=== PATIENT | female | born 1935 | race Caucasian/White ===

== ENCOUNTER 2017-03-14 11:18 | Day surgery (SDC) | payer OTHER, BC ==
[2017-03-14] MEDS ORDERED: DIAZEPAM 5 MG TAB PO ONE (11:22)
[2017-03-14] MEDS ORDERED: diphenhydrAMINE 25 MG CAP PO ONE (11:22)
[2017-03-14] MEDS ORDERED: BACITRACIN IRRIGATION/NS 50,000 UNITS/1,000 ML BTL IRR ONE (11:22)
[2017-03-14] MEDS ORDERED: NS 1,000 ML IV ONE (11:22)
--- NOTE | 2017-03-14 11:52 | CPEKG ---
Heart Rate: 65 RR Interval: 923 P-R Interval: 164 QRSD Interval: 76 QT Interval: 420 QTC Interval: 437 P Kingman: 64 QRS Kingman: -3 T Wave Kingman: 43 EKG Severity - NORMAL ECG - EKG Impression: SINUS RHYTHM Electronically Signed By: Maximilian Spence 14-Mar-2017 14:27:08
[2017-03-14] MEDS ORDERED: VANCOMYCIN HCL/NORMAL SALINE 250 ML IV ONE (12:00)
[2017-03-14 12:13] LABS: % IMMATURE GRANULYOCYTES 0.4 % (0.0-1.1); ABSOLUTE IMMATURE GRANULOCYTES 0.02 10^3/uL (0.00-0.10); ADD DIFF? NO; ADD MORPH? NO; ADD SCAN? NO; ATYPICAL LYMPHOCYTE FLAG 20 (0-99); FRAGMENT RBC FLAG 0 (0-99); HEMATOCRIT 35.3 % (38.0-47.0); HEMOGLOBIN 11.3 g/dL (12.6-16.3); LEFT SHIFT FLG 0 (0-99); LIPEMIA HEMOLYSIS FLAG 80 (0-99); MEAN CELL HEMOGLOBIN 31.4 pg (27.9-34.1); MEAN CELL VOLUME 98.1 fL (81.5-99.8); PLATELET CLUMPS FLAG 0 (0-99); PLATELET COUNT 178 10^3/uL (150-400); RED CELL DISTRIBUTION WIDTH 12.9 % (11.5-15.2)
[2017-03-14] MEDS ORDERED: LIDOCAINE 1% 300 MG/30 ML SDV ONE (12:20)
[2017-03-14] MEDS ORDERED: BUPIVACAINE 0.5% 30 ML SDV ONE (12:20)
[2017-03-14] MEDS ORDERED: LIDO/EPI 1% **for epidural** 30 ML SDV ONE (12:20)
[2017-03-14 12:23] LABS: INR 1.04 (0.83-1.16); PROTIME(PATIENT) 13.5 SEC (12.0-15.0)
[2017-03-14] MEDS ORDERED: MIDAZOLAM 2 MG/2 ML VIAL ONE ×2 (12:40→13:14)
[2017-03-14] MEDS ORDERED: fentaNYL 100 MCG/2 ML INJ ONE (12:41)
[2017-03-14 12:42] LABS: ANION GAP 11 mEq/L (8-16); CALCIUM 10.4 mg/dL (8.5-10.4); CARBON DIOXIDE 23 mEq/l (22-31); CHLORIDE 112 mEq/L (97-110); CREATININE 1.8 mg/dL (0.6-1.0); GLOMERULAR FILTRATION RATE 27; GLUCOSE 79 mg/dL (70-100); POTASSIUM 4.8 mEq/L (3.5-5.2); SODIUM 146 mEq/L (134-144)
--- NOTE | 2017-03-15 11:30 | EPPROC ---
Electrophysiology Procedure Note: PROCEDURE PERFORMED: 1. AV Pacemaker generator change INDICATION: Pacemaker generator at MARJORIE Bradycardia PROCEDURE NOTE: Patient presented to the cardiac catheterization laboratory in a fasting, postabsorptive state.LA administered. The left infraclavicular area was prepped and draped in the usual sterile fashion. Lidocaine plus bupivacaine was used for local anesthesia. Using a combination of blunt and sharp dissection and electrocautery, the dissection was carried down to the prepectoral fascia and the existing pacemaker pocket was opened. The pacemaker generator was disconnected from the leads and the lead thresholds and impedance were checked. The pacemaker pocket was copiously irrigated with antibiotic solution. The pocket was again inspected for any bleeding. The leads were attached to the pacemaker securely. The pacemaker was inserted into the pocket and secured in place with a nonabsorbable suture. The pacemaker pocket was closed in 3 layers with absorbable monocryl sutures. Appropriate dressing was applied. The patient left the cardiac catheterization laboratory in stable condition. Serial Numbers: 1. Device Biotronik ELuna [id number] 2. Atrial Lead St Ean 1882TC - 46 [id number] 3. Ventricular Lead Biotronik Setrox [id number] Stimulation Thresholds & Impedance Measurements: 1. Atrial Lead 6mV, 0.8@0.4ms, 390Ohms 2. Ventricular Lead 6.8mV, 1.1@0.75ms, 428Ohms Christopher Pacing Parameters 1. Pacing mode DDD 2. Lower rate 70 3. Upper tracking rate 130 4. Upper sensor rate 130
== END 2017-03-14 15:45 | disposition home or self-care (01) ==
LOC: FCATH 11:18
PROVIDERS: ATTEND Internal Medicine Cardiovascular Disease
PROC: 0JPT0PZ Removal of Cardiac Rhythm Related Device from Trunk Subcutaneous Tissue and Fascia, Open Approach (ICD-10-PCS; principal; 2017-03-14)
PROC: 0JH606Z Insertion of Pacemaker, Dual Chamber into Chest Subcutaneous Tissue and Fascia, Open Approach (ICD-10-PCS; principal; 2017-03-14)
DX: Z45.018 Encounter for adjustment and management of other part of cardiac pacemaker (principal); I49.5 Sick sinus syndrome; I10 Essential (primary) hypertension; E03.9 Hypothyroidism, unspecified; F31.9 Bipolar disorder, unspecified
CPT/HCPCS: C1785; J2250; J3010; J3370

== ENCOUNTER 2017-08-09 05:32 | Observation (INO) | payer OTHER, BC ==
--- NOTE | 2017-08-09 05:46 | EDPHY ---
H & P Stated Complaint: right leg pain HPI/ROS: HPI CHIEF COMPLAINT: Intractable right leg pain HISTORY OF PRESENT ILLNESS: This patient is a very pleasant 82-year-old female she has significant past medical history for multiple chronic medical problems including a very bad back including spinal canal stenosis disc herniation and radicular pain, she presents to the emergency room with severe right 10/10 right leg pain that is intractable. Preventing her from walking. She denies any bowel or bladder incontinence. Denies saddle anesthesia. She she decided come the emergency room tonight as she is having ongoing back pain that was not controlled by her home pain medicine. She did call Dr. Serafin Jim office and the nurse there told her to come to the emergency room for evaluation that neurosurgery will consult on her. Here in emergency room she appears uncomfortable she denies any abdominal pain or chest pain. She does report to me severe right leg pain shoots down her right leg to her calf. Does not go to her foot. Past Medical History: Sick sinus syndrome, polymyalgia rheumatica, bipolar disorder, GERD, pacemaker, SHOWER MAID SHUNT lumbar arthritis, lumbar disc herniation Past Surgical History: Pacemaker, SHOWER MAID shunt Social History: Denies drugs alcohol tobacco products. Family History: Noncontributory. ROS REVIEW OF SYSTEMS: A comprehensive 10 point review of systems is otherwise negative aside from elements mentioned in the history of present illness. Exam Constitutional elderly, nontoxic, appears uncomfortable triage nursing summary reviewed, vital signs reviewed, awake/alert. Eyes normal conjunctivae and sclera, EOMI, PERRLA. HENT normal inspection, atraumatic, moist mucus membranes, no epistaxis, neck supple/ no meningismus, no raccoon eyes. Respiratory clear to auscultation bilaterally, normal breath sounds, no respiratory distress, no wheezing. Cardiovascular rate normal, regular rhythm, no murmur, no edema, distal pulses normal. Gastrointestinal soft, non-tender, no rebound, no guarding, normal bowel sounds, no distension, no pulsatile mass. Genitourinary no CVA tenderness. Musculoskeletal no midline vertebral tenderness, full range of motion, no calf swelling, no tenderness of extremities, no meningismus, good pulses, neurovascularly intact. Right leg is neurovascular intact good pulse. Good cap refill. With range of motion of the right leg she gets worsening sciatic type sharp shooting pain. Skin pink, warm, & dry, no rash, skin atraumatic. Neurologic awake, alert and oriented x 3, AAOx3, moves all 4 extremities equally, motor intact, sensory intact, CN II-XII intact, normal cerebellar, normal vision, normal speech. Psychiatric normal mood/affect. Heme/Lymph/Immune no lymphadenopathy. Differential Diagnosis: Includes but is not limited to in a particular order nerve root compression, annular tear, spinal canal stenosis, radicular pain, sciatica Medical Decision Making: Plan for this patient IV establishment pain control IV Dilaudid for acute pain control, check basic blood work, gentle IV hydration , will consult Neurosurgery Re-evaluation: 604: Spoke with Dr. Martinez with Neurosurgery the be glad to see and consult on the if the patient gets admitted for intractable pain. I did review her outpatient CT myelogram she cannot have an MRI due to the pacemaker, she had a CT myelogram [facility] on June 05 that shows slightly worsened canal stenosis at L4-L5 due to broad-based disc disease , subluxation and abundant facet and ligamentum hypertrophy. Source: Patient - Personal History Current Tetanus/Diphtheria Vaccine: Unsure Current Tetanus Diphtheria and Acellular Pertussis (TDAP): Unsure - Medical/Surgical History Hx Asthma: No Hx Chronic Respiratory Disease: No Hx Diabetes: No Hx Cardiac Disease: Yes Hx Renal Disease: Yes Hx Cirrhosis: No Hx Alcoholism: No Hx HIV/AIDS: No Hx Splenectomy or Spleen Trauma: No Other PMH: pacemaker, kidney disease, afib - Social History Smoking Status: Never smoked Constitutional: Initial Vital Signs Temperature (C) 36.4 C 08/09/17 05:34 Heart Rate 91 08/09/17 05:34 Respiratory Rate 18 08/09/17 05:34 Blood Pressure 145/69 H 08/09/17 05:34 O2 Sat (%) 96 08/09/17 05:34 O2 Delivery Mode Room Air Allergies/Adverse Reactions: morphine [Morphine] Allergy (Intermediate, Verified 08/09/17 05:39) Unknown acetaminophen [From Tylenol] Allergy (Verified 08/09/17 05:39) clindamycin Allergy (Verified 08/09/17 05:39) Penicillins Allergy (Verified 08/09/17 05:39) Home Medications: Medication Instructions Recorded Levothyroxine [Synthroid 112 mcg 112 mcg PO DAILY06 03/14/17 (*)] Omeprazole [Prilosec 20 mg] 40 mg PO BID 03/14/17 ALPRAZolam [Xanax 0.5 MG (*)] 0.5 mg PO HS PRN 08/09/17 Cyanocobalamin [Vitamin B12 (*)] 1,000 mcg PO DAILY 08/09/17 DULoxetine [Cymbalta 30 MG (*)] 30 mg PO HS 08/09/17 Divalproex ER [Depakote ER 250 MG 250 mg PO HS 08/09/17 (*)] Donepezil HCl [Aricept 5 MG (*)] 5 mg PO HS 08/09/17 Herbals/Supplements -Info Only 1 ea PO DAILY 08/09/17 Losartan Potassium [Cozaar 50 mg 50 mg PO DAILY@12 08/09/17 (*)] Memantine HCl [Namenda 5 mg (*)] 5 mg PO HS 08/09/17 Metoprolol Tartrate [Lopressor 25 12.5 mg PO BID 08/09/17 mg (*)] Acetaminophen [Tylenol ES 500 mg 1,000 mg PO TID tab 08/10/17 (*)] traMADol [Ultram 50 mg (*)] 25 - 50 mg PO Q6HRS PRN #25 tab 08/10/17 Medical Decision Making - Data Points Medications Given: Discontinued Medications Acetaminophen (Tylenol) 1,000 mg PO TID EDIE Stop: 02/06/18 10:29 Last Admin: 08/10/17 16:31 Dose: Not Given Alprazolam (Xanax) 0.5 mg PO HS PRN PRN Reason: Sleep/Insomnia Stop: 02/05/18 12:14 Last Admin: 08/09/17 21:03 Dose: 0.5 mg Divalproex Sodium (Depakote Er) 250 mg PO HS EDIE Stop: 02/05/18 20:59 Last Admin: 08/09/17 21:00 Dose: 250 mg Donepezil HCl (Aricept) 5 mg PO HS EDIE Stop: 02/05/18 20:59 Last Admin: 08/09/17 21:02 Dose: Not Given Duloxetine HCl (Cymbalta) 30 mg PO HS EDIE Stop: 02/05/18 20:59 Last Admin: 08/09/17 21:03 Dose: 30 mg Hydromorphone HCl (Dilaudid) 1 mg IVP EDNOW ONE Stop: 08/09/17 05:57 Last Admin: 08/09/17 06:47 Dose: 1 mg Hydromorphone HCl (Dilaudid) 2 - 4 mg PO Q4HRS PRN PRN Reason: Pain, Severe Able to Take PO Stop: 08/19/17 06:39 Last Admin: 08/10/17 00:52 Dose: 2 mg Hydromorphone HCl (Dilaudid) 0.2 - 0.4 mg IVP Q4HRS PRN PRN Reason: Pain, Severe Unable to Take PO Stop: 08/19/17 06:16 Last Admin: 08/10/17 07:55 Dose: 0.4 mg Hydromorphone/Sodium Chloride (Hydromorphone) 0.2 - 0.4 mg IVP Q4HRS PRN PRN Reason: Pain, Severe Unable to Take PO Stop: 08/19/17 06:16 Last Admin: 08/09/17 17:40 Dose: 0.4 mg Hydromorphone/Sodium Chloride (Hydromorphone) 0.4 mg IVP ONCE ONE Stop: 08/09/17 18:16 Last Admin: 08/09/17 18:00 Dose: 0.4 mg Sodium Chloride (Ns) 500 mls @ 0 mls/hr IV ONCE ONE PRN Reason: Wide Open Stop: 08/09/17 05:57 Last Admin: 08/09/17 06:44 Dose: 500 mls Levothyroxine Sodium (Synthroid) 112 mcg PO DAILY06 [facility] Stop: 02/06/18 05:59 Last Admin: 08/10/17 04:23 Dose: 112 mcg Losartan Potassium (Cozaar) 50 mg PO DAILY@12 EDIE Stop: 02/06/18 11:44 Last Admin: 08/10/17 12:35 Dose: Not Given Memantine (Namenda) 5 mg PO HS [facility] Stop: 02/05/18 20:59 Last Admin: 08/09/17 21:02 Dose: 5 mg Methocarbamol (Robaxin) 750 mg PO TID PRN PRN Reason: back spasms Stop: 02/05/18 15:59 Last Admin: 08/10/17 07:49 Dose: 750 mg Metoprolol Tartrate (Lopressor) 12.5 mg PO BID [facility] Stop: 02/05/18 12:14 Last Admin: 08/10/17 07:48 Dose: 12.5 mg Pantoprazole Sodium (Protonix) 40 mg PO BID [facility] Stop: 02/05/18 20:59 Last Admin: 08/10/17 07:49 Dose: 40 mg Tramadol HCl (Ultram) 50 mg PO Q6HRS PRN PRN Reason: Pain, Moderate Able to Take PO Stop: 02/05/18 13:07 Last Admin: 08/10/17 16:26 Dose: 50 mg Vitamin B Complex (Vitamin B12) 1,000 mcg PO DAILY [facility] Stop: 02/06/18 08:59 Last Admin: 08/10/17 07:48 Dose: 1,000 mcg Departure - Departure Disposition: [facility] Inpatient Acute Clinical Impression: Back pain Qualifiers: Back pain location: low back pain Chronicity: acute Back pain laterality: unspecified Sciatica presence: with sciatica Sciatica laterality: sciatica of right side Qualified Code(s): M54.41 - Lumbago with sciatica, right side Condition: Fair
[2017-08-09] MEDS ORDERED: NS 500 ML IV ONE (05:56)
[2017-08-09] MEDS ORDERED: HYDROmorphONE/DILAUDID 1 MG/ML INJ IVP ONE (05:56)
[2017-08-09] MEDS ORDERED: ACETAMINOPHEN 325 MG TAB PO PRN (06:17)
[2017-08-09] MEDS ORDERED: oxyCODONE IR 5 MG TAB PO PRN (06:17)
[2017-08-09] MEDS ORDERED: ONDANSETRON DISINTEGRATING 4 MG TAB PO PRN (06:17)
[2017-08-09] MEDS ORDERED: ONDANSETRON 4 MG/2 ML VIAL IVP PRN (06:17)
--- NOTE | 2017-08-09 06:44 | PDGENHP ---
History and Physical - Chief Complaint Back pain - History of Present Illness 82 yo F w/ SSS s/p PPM, chronic lower back pain, hypothyroid, NPH s/p VPS, and CKD presents with acute on chronic back pain. Patient reports slowly progressive back pain for the last month. This has progressed to significantly involve her RLE. The pain is now so severe she cannot walk. She tried to make an appointment with her neurosurgeon but she was unable to get an appointment so she came to the ED for evaluation. She denies any weakness, numbness, or loss of bowel/bladder control. History Information - Allergies/Home Medication List Allergies/Adverse Reactions: morphine [Morphine] Allergy (Intermediate, Verified 08/09/17 05:39) Unknown acetaminophen [From Tylenol] Allergy (Verified 08/09/17 05:39) clindamycin Allergy (Verified 08/09/17 05:39) Penicillins Allergy (Verified 08/09/17 05:39) Home Medications: CO Q-10 PO 03/14/17 [Last Taken Unknown] Calcitriol 0.25 mcg PO MWF 03/14/17 [Last Taken Unknown] Folic Acid 03/14/17 [Last Taken Unknown] Losartan Potassium 25 mg PO HS 03/14/17 [Last Taken Unknown] Nitroglycerin 0.4 mg SL PRN 03/14/17 [Last Taken Unknown] Omeprazole 80 mg PO DAILY 03/14/17 [Last Taken Unknown] Probiotic 03/14/17 [Last Taken Unknown] Synthroid 125 mcg PO DAILY 03/14/17 [Last Taken Unknown] Vitamin D3 03/14/17 [Last Taken Unknown] Vitamin E 03/14/17 [Last Taken Unknown] Lopressor 25 mg (*) 08/09/17 [Last Taken Unknown] I have personally reviewed and updated: family history, medical history - Past Medical History Additional medical history: CKD. SSS s/p PPM. NPH s/p VPS. Chronic lower back pain - Surgical History Reports: pacemaker/AICD - Family History Positive for: cancer - Social History Smoking Status: Never smoked Review of Systems Review of Systems: ROS: 10pt was reviewed & negative except for what was stated in HPI & below Physical Exam Physical Exam: Temp Pulse Resp BP Pulse Ox 36.4 C 91 18 145/69 H 96 08/09/17 05:34 08/09/17 05:34 08/09/17 05:34 08/09/17 05:34 08/09/17 05:34 Constitutional: appears nourished, uncomfortable Eyes: PERRL, EOMI Ears, Nose, Mouth, Throat: moist mucous membranes, no oral mucosal ulcers Cardiovascular: regular rate and rhythym, systolic murmur Respiratory: no respiratory distress, clear to auscultation Gastrointestinal: normoactive bowel sounds, soft, non-tender abdomen Skin: warm, normal color Neurologic: AAOx3, CN II-XII Intact, other (Cannot cooperate w/ LE strength testing due to pain, hard of hearing) Psychiatric: interacting appropriately, not anxious Assessment & Plan Assessment: 82 yo F w/ SSS s/p PPM, chronic lower back pain, hypothyroid, NPH s/p VPS, and CKD presents with acute on chronic back pain. Plan: 1. Acute on chronic back pain - This is a chronic problem, acutely exacerbated, that stems from degenerative disease of the lumbar spine and canal stenosis. She cannot get an MRI due to permanent pacemaker. She has tried little pain medication at home as her screw machine repairer has warned against NSAIDs and she does not like to take oxycodone due to fear for dependency. Her back pain is limiting her ability to ambulate due to radiculopathy to RLE. - Dilaudid PO + IV breakthrough for pain control - Neurosurgery consulted in ED; not a surgical candidate but will evaluate for steroid injections today 2. SSS - S/p PPM, cannot undergo MRI. 3. Hx NPH - S/p VPS 4. CKD Stage III - Baseline creatinine appears to be in 1.6-1.8 range; reasonable to avoid NSAIDs. 5. Hypothyroid - On LTX. Diet - Regular Code - Full Ppx - SCDs Dispo - Admit to observation status
[2017-08-09 06:57] LABS: % IMMATURE GRANULYOCYTES 0.8 % (0.0-1.1); ABSOLUTE IMMATURE GRANULOCYTES 0.04 10^3/uL (0.00-0.10); ADD DIFF? NO; ADD MORPH? NO; ADD SCAN? NO; ATYPICAL LYMPHOCYTE FLAG 30 (0-99); FRAGMENT RBC FLAG 0 (0-99); HEMATOCRIT 34.1 % (38.0-47.0); HEMOGLOBIN 11.5 g/dL (12.6-16.3); LEFT SHIFT FLG 0 (0-99); LIPEMIA HEMOLYSIS FLAG 80 (0-99); MEAN CELL HEMOGLOBIN 32.3 pg (27.9-34.1); MEAN CELL HEMOGLOBIN CONCENTR. 33.7 g/dL (32.4-36.7); MEAN CELL VOLUME 95.8 fL (81.5-99.8); MEAN PLATELET VOLUME 9.8 fL (8.7-11.7); PLATELET CLUMPS FLAG 10 (0-99); PLATELET COUNT 160 10^3/uL (150-400); RED BLOOD CELL COUNT 3.56 10^6/uL (4.18-5.33); RED CELL DISTRIBUTION WIDTH 12.7 % (11.5-15.2)
[2017-08-09 07:05] LABS: INR 0.96 (0.83-1.16)
[2017-08-09 07:13] LABS: ANION GAP 16 mEq/L (8-16); CARBON DIOXIDE 20 mEq/l (22-31); CHLORIDE 111 mEq/L (97-110); CREATININE 1.6 mg/dL (0.6-1.0); GLOMERULAR FILTRATION RATE 31; GLUCOSE 94 mg/dL (70-100); POTASSIUM 4.1 mEq/L (3.5-5.2); SODIUM 147 mEq/L (134-144)
[2017-08-09] MEDS: HYDROmorphONE/DILAUDID 2 MG TAB PO PRN ×2 (07:24→14:26)
[2017-08-09] MEDS: HYDROmorphone HCL/NS/PF 0.4 MG/2 ML SYR IVP PRN ×2 (08:53→17:40)
[2017-08-09 09:17] LABS: COLOR YELLOW; LEUKOCYTE ESTERASE,URINE NEGATIVE (NEGATIVE); NITRITE,URINE NEGATIVE (NEGATIVE)
[2017-08-09] MEDS ORDERED: ALPRAZolam 0.5 MG TAB PO PRN (12:15)
[2017-08-09] MEDS: METOPROLOL TARTRATE 25 MG TAB PO SCH ×2 (12:50→21:00)
--- NOTE | 2017-08-09 12:51 | HOSPPROG ---
Hospitalist Progress Note Assessment/Plan: 82 yo F w/ SSS s/p PPM, chronic lower back pain, hypothyroid, NPH s/p VPS, and CKD presents with acute on chronic back pain. 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 Objective: Vital Signs Temp Pulse Resp BP Pulse Ox 37.1 C 78 14 121/59 H 90 L 08/09/17 11:47 08/09/17 11:47 08/09/17 11:47 08/09/17 11:50 08/09/17 11:47 Laboratory Results 08/09/17 06:20 08/09/17 06:20 08/08/17 08/09/17 08/10/17 05:59 05:59 05:59 Output Total 300 Balance -300 PT 13.0 SEC (12.0-15.0) 08/09/17 06:20 INR 0.96 (0.83-1.16) 08/09/17 06:20 - Physical Exam Constitutional: uncomfortable, No not in pain Eyes: PERRL Ears, Nose, Mouth, Throat: hard of hearing, other (poor vision) Respiratory: no respiratory distress Skin: warm Musculoskeletal: muscular tenderness Neurologic: AAOx3 Psychiatric: interacting appropriately ICD10 Worksheet Patient Problems: Problems Problem Status Onset Back pain Acute
[2017-08-09] MEDS: METHOCARBAMOL 750 MG TAB PO PRN (12:53)
[2017-08-09] MEDS: traMADol 50 MG TAB PO PRN (13:16)
--- NOTE | 2017-08-09 14:26 | GHP ---
[f rep st] HISTORY AND PHYSICAL DATE OF ADMISSION: 08/09/2017 CHIEF COMPLAINT: Back pain and right leg pain. HISTORY OF PRESENT ILLNESS: This is an 82-year-old female who is a patient of Dr. Jim's, who has been seen and worked up in his office for back pain as well as leg pain recently, and who has been tr eated with injections in the past, but without much relief. She comes to the emergency room with int ractable back pain and right leg pain that she states has been worse over the last few days, but has been present since the summer. She states that her pain is so severe that she is unable to walk. govind did make an appointment with Dr. Jim, but she has been unable to get in for that as soon as she wanted to have it, so she came to the emergency room due to her intractable pain. She denies any los s of bowel or bladder control, any numbness or any weakness. She does state that her right leg pain goes along down her "whole leg," but is worse going down the lateral side of her thigh and down into her foot. She has not had any recent injections, and she is not on any gabapentin. She is unable to get an MRI due to her pacemaker. She does have a recent CT myelogram that was recently reviewed by Dr. Jim as well, and which shows a worsening canal stenosis at L4-5. This is due to a broad-based disk subluxation and abundant facet ligamentum hypertrophy at this level. 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 She was seen by Dr. Martinez this morning, and we have discusse d her care, and would like to proceed with an epidural steroid injection at this time. PAST MEDICAL HISTORY: Patient has a past medical history of chronic kidney disease, shunt for normal -pressure hydrocephalus, chronic lower back pain, pacemaker. SURGICAL HISTORY: Surgical history of a pacemaker and shunt placement for normal-pressure hydrocepha matthew. FAMILY HISTORY: Significant for cancer. SOCIAL HISTORY: Patient denies any tobacco use and denies any alcohol use and denies any other illic it drug use. ALLERGIES: Patient has an allergy to morphine, acetaminophen, clindamycin, and penicillin. REVIEW OF SYSTEMS: All pertinent positive and negative review of systems are as stated in HPI. OBJECTIVE: VITAL SIGNS: Blood pressure is 121/59, heart rate 78, respiratory rate 14, O2 saturation is 90% on room air. Temperature 37.1 degrees Celsius. CONSTITUTIONAL: Patient is an elderly femal e in no acute distress. However, she is grimacing in pain and holding her leg. HEENT: Head is norm ocephalic, atraumatic. Eyes: Pupils are equal and reactive to light and accommodation. Extraocular muscles are intact. NECK: Nontender to palpation. Has full range of motion. RESPIRATORY: The pa tient has normal work of breathing. ABDOMEN: There is no guarding. NEURO: Cranial nerves 2-12 are grossly intact. Tongue protrusion is midline. Palate rises symmetrically. Accessory muscles are 5 /5, equal in strength. She is alert and oriented x3. She is conversing appropriately. Motor: Bila teral upper extremities are 5/5, equal in strength in all muscle groups, including deltoids, biceps, triceps, wrist extensors, flexors, interossei and flow match sofa cutter, and bilateral lower extremities are 5/5 and e qual in strength, although is somewhat pain limited on the right lower extremity, but her strength do es seem to be equal and somewhat effort dependent. She has 5/5 in her quadriceps, hamstrings, dorsif lexion, plantar flexion, and EHL. Her deep tendon reflexes are 2+ bilaterally in patellar and Achill es. She has negative clonus, and her toes are downgoing. EXTREMITIES: There is no cyanosis or abraham a noted. LABORATORY DATA: Laboratory data, taken on 08/09/2017, reveals a white blood cell count 5.02, red bl ood cell count 3.56, hemoglobin 11.5, hematocrit 34.1, platelets 160. PT 13.0, INR 0.96, APTT 26.0. Sodium 147, potassium 4.1, chloride 101, carbon dioxide 20, anion gap 16, BUN 18, creatinine 1.6, GF R 31, glucose 94, and calcium 10.0. Urine was negative for any sign of infection. DIAGNOSTIC IMAGING REVIEW: 1. A lumbar spine x-ray was performed on August 09, and shows a progression of degenerative disk d isease at L3-4 with stable 5 mm of anterior subluxation. 2. Sclerosis about the left SI joint, possibly from underlying sacroiliitis. 3. Previous laminectomy at L5 and S1. 4. A CT myelogram that was previously done on 06/05/2017 was also reviewed, and this shows a fairly similar exam, except for a slightly worsened canal stenosis at L4-5. This was due to a broad-based d isk subluxation and abundant facet and ligamentum hypertrophy. 5. Postoperative changes in the lower lumbar spine. 6. No other significant canal or definite foraminal stenosis. ASSESSMENT AND PLAN: This is an 82-year-old female who has a history of chronic low back pain and ri ght leg pain, who presents with intractable back pain and right leg pain. She is unable to get an MR I due to a presence of a pacemaker. However, a recent CT myelogram was reviewed, and based on her sy mptoms, she may be symptomatic to her disk herniation at L4-5 on the right. She also does have an an terior listhesis of L3-4 of 5 mm that has been stable, but she seems primarily symptomatic at the L4- 5 level. We will, therefore, get an epidural steroid injection at L4-5 on the right, to see if we ca n manage her leg pain better. We will monitor her results from this injection, and move forward with any further treatment plan as necessary. She is to participate as able in physical therapy and occu pational therapy. If she does not have a good result from the injection, we may also try some gabape ntin or possible oral steroid, but we will look at this further as we see how she does with the injec tion. Patient was seen by Dr. Martinez this morning at approximately 6:30 a.m., and please call us jena rushing any changes in her neurologic exam. /[id number]/MODL
[2017-08-09] MEDS ORDERED: IOPAMIDOL (ISOVUE-M 300) 15 ML VIAL ONE (15:56)
[2017-08-09] MEDS ORDERED: TRIAMCINOLONE ACETONIDE 200 MG/5 ML MDV IM ONE (15:56)
[2017-08-09] MEDS ORDERED: HYDROmorphone HCL/NS/PF 0.4 MG/2 ML SYR IVP ONE (18:15)
[2017-08-09] MEDS ORDERED: DULoxetine 30 MG CAP PO SCH (21:00)
[2017-08-09] MEDS ORDERED: MEMANTINE HCL 5 MG TAB PO SCH (21:00)
[2017-08-09] MEDS ORDERED: DONEPEZIL HCL 5 MG TAB PO SCH (21:00)
[2017-08-09] MEDS ORDERED: DIVALPROEX ER 250 MG TAB PO SCH (21:00)
[2017-08-09] MEDS ORDERED: ALPRAZolam 0.25 MG TAB PO PRN (21:00)
[2017-08-09] MEDS ORDERED: NON-FORMULARY NEW DRUG (Omeprazole [Prilosec 20 Mg] 40 MG) PO SCH (21:00)
[2017-08-09] MEDS: PANTOPRAZOLE SODIUM 40 MG TAB PO SCH (21:01)
[2017-08-10] MEDS: traMADol 50 MG TAB PO PRN ×3 (00:03→16:26)
[2017-08-10] MEDS: METHOCARBAMOL 750 MG TAB PO PRN ×2 (00:47→07:49)
[2017-08-10] MEDS: HYDROmorphONE/DILAUDID 2 MG TAB PO PRN (00:52)
[2017-08-10] MEDS: HYDROmorphONE/DILAUDID 1 MG/ML INJ IVP PRN ×2 (02:31→07:55)
[2017-08-10 04:46] LABS: ANION GAP 10 mEq/L (8-16); CALCIUM 9.7 mg/dL (8.5-10.4); CARBON DIOXIDE 21 mEq/l (22-31); CHLORIDE 109 mEq/L (97-110); CREATININE 1.4 mg/dL (0.6-1.0); GLOMERULAR FILTRATION RATE 36; GLUCOSE 120 mg/dL (70-100); POTASSIUM 5.4 mEq/L (3.5-5.2); SODIUM 140 mEq/L (134-144)
[2017-08-10] MEDS ORDERED: LEVOTHYROXINE 112 MCG TAB PO SCH (06:00)
[2017-08-10] MEDS: METOPROLOL TARTRATE 25 MG TAB PO SCH (07:48)
[2017-08-10] MEDS: PANTOPRAZOLE SODIUM 40 MG TAB PO SCH (07:49)
--- NOTE | 2017-08-10 07:51 | NEUSURGPN ---
Assessment/Plan: Samantha is a 82 y/o female with back adn right leg pain. She underwent inteventional injections with IR yesterday and states that is made thinks very painful yesterday but her pain this morning is improved. -Discussed with patient that injection can take some time to reach full effectiveness, she contributes her pain relief to medications (not the injection ). -Recommend continuing to optimize pain management -PT/OT -Okay to dispo per medicine once pain control stabilized. -She should follow up in 2-3 weeks to discuss full benefit of the injection -If she develops any new or worsening symptoms, change in neuro/motor exam, please notify NS. -Discussed with Dr. Martinez and Dr. Jim Subjective: pain horrible with injection, improving with medications. Objective: NAD A&Ox3 MAEx4, 5/5 and equal in BLE. Sensation intact. Neurosurgery Physical Exam - Vitals, I&O, Labs I and O 08/09/17 08/10/17 08/11/17 05:59 05:59 05:59 Intake Total 1200 Output Total 1503 Balance -303 Weight 61.235 kg Intake: Oral (ml) 1200 Output: Urine (ml) 1503 Toilet 1503 Other: Number of Voids Toilet 2 Vital Signs Temp Pulse Resp BP Pulse Ox 36.5 C 84 16 181/81 H 96 08/10/17 07:12 08/10/17 07:12 08/10/17 07:12 08/10/17 07:12 08/10/17 07:12 Laboratory Results 08/09/17 06:20 08/10/17 04:11 ICD10 Worksheet Patient Problems: Problems Problem Status Onset Back pain Acute
[2017-08-10] MEDS ORDERED: CYANO/VITAMIN B12 1000 MCG TAB PO SCH (09:00)
[2017-08-10] MEDS ORDERED: hydrALAZINE 10 MG TAB PO PRN (09:46)
--- NOTE | 2017-08-10 10:33 | HOSPPROG ---
Hospitalist Progress Note Assessment/Plan: 82 yo F w/ SSS s/p PPM, chronic lower back pain, hypothyroid, NPH s/p VPS, and CKD presents with acute on chronic back pain. 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 Objective: Vital Signs Temp Pulse Resp BP Pulse Ox 36.5 C 84 16 172/88 H 96 08/10/17 07:12 08/10/17 07:12 08/10/17 07:12 08/10/17 08:12 08/10/17 07:12 Laboratory Results 08/09/17 06:20 08/10/17 04:11 08/09/17 08/10/17 08/11/17 05:59 05:59 05:59 Intake Total 1200 Output Total 1503 Balance -303 PT 13.0 SEC (12.0-15.0) 08/09/17 06:20 INR 0.96 (0.83-1.16) 08/09/17 06:20 - Physical Exam Constitutional: appears nourished, uncomfortable Ears, Nose, Mouth, Throat: hard of hearing Cardiovascular: regular rate and rhythym Respiratory: no respiratory distress Skin: warm Musculoskeletal: generalized weakness Neurologic: AAOx3 Psychiatric: agitated ICD10 Worksheet Patient Problems: Problems Problem Status Onset Back pain Acute
[2017-08-10 11:15] LABS: POTASSIUM 4.9 mEq/L (3.5-5.2)
[2017-08-10] MEDS: ACETAMINOPHEN 500 MG TAB PO SCH ×2 (11:24→16:31)
[2017-08-10] MEDS: LOSARTAN POTASSIUM 50 MG TAB PO SCH ×2 (12:11→12:35)
--- NOTE | 2017-08-10 12:24 | ASMTCMCOM ---
CM Note CM Note Notes: Pt admitted OBS for back pain. Pt lives with her Ananth in [place]. 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 Awaiting PT/OT evals to determine if HC services needed. C/M to follow. Date Signed: 08/10/2017 12:24 PM Electronically Signed By:Amber Galicia LCSW
[2017-08-10 15:18] VITALS: PULSE 73; RESP 14; TEMP 98.1; O2SAT 94
--- NOTE | 2017-08-10 16:05 | GDS ---
[f rep st] DISCHARGE SUMMARY DISCHARGE DIAGNOSES: 1. Acute back pain. 2. Sick sinus syndrome status post pacemaker. 3. History of normal-pressure hydrocephalus status post ventricular shunt. 4. History of chronic kidney disease, stage 3, with a baseline creatinine around 1.6 to 1.8. 5. Hyperkalemia. 6. Hypothyroidism. 7. Hypertension. 8. Recent admission for bipolar, not at this facility. HISTORY OF PRESENT ILLNESS: Briefly, the patient is an 82-year-old female, sick sinus syndrome, who has chronic lower back pain. She came to the emergency room with [id number] back pain and had difficulty with ambulation. She had a steroid injection performed on 08/09. This was at the right L4 transforaminal area with a nerve root block. She is feeling better, not completely 100%, but the pain is well managed enough for her to ambulate in the room. HOSPITAL COURSE BY PROBLEM: 1. Gncqr-du-mumqxib back pain. She was seen and evaluated by Neurosurgery, who recommended the steroid injection. She will follow up in the outpatient setting. What managed her pain at this time was scheduled Tylenol and p.r.n. tramadol. 2. Sick sinus syndrome, status post pacemaker. 3. History of NPH status post shunt. 4. Chronic kidney disease, stable. 5. Hyperkalemia. Rechecked her potassium; it was stable. Resumed her ARB. 6. Hypothyroidism on Synthroid. 7. Hypertension. Resumed her home medications. 8. Recent hospitalization for bipolar, stable. She is on Depakote for this. DISCHARGE CONDITION: Stable. Blood pressure is 139/61, heart rate 73, respiratory rate is 14, O2 sats on room air 94%, temperature 36.7 Celsius. MEDICATIONS AT DISCHARGE: Please see the EMR. DISCHARGE INSTRUCTIONS: 1. Follow up with Dr. Serafin Jim in the outpatient setting. 2. Recommended home care for her in regard to physical therapy, occupational therapy. She does not want this. 3. She will get a prescription for tramadol. Recommend that she try half a tab initially to see if this works. 4. If she develops incontinent of urine or stool, or any type of fever, chills , return to the ER. Copy requested to: Dr. Serafin Jim /[id number]/MODL MTDD
[2017-08-10 16:26] VITALS: BP 144/76
--- NOTE | 2017-08-10 16:52 | ASDISCHSUM ---
Discharge Information Plan Status: Medically Cleared to Leave: Discharge Date:08/10/2017 04:48 PM CM D/C Disposition: ADT D/C Disposition:Home, Routine, Self-Care Projected Discharge Date:08/10/2017 04:48 PM Transportation at D/C: Discharge Delay Reason: Follow-Up Date:08/10/2017 04:48 PM Discharge Slot: Final Diagnosis: Placement Information Patient Contact Information Contact Name:JUNE Relationship: Address:[address] [place] Alternate Phone: State/Zip Code:[place] [address] Email: Financial Information Financial Class: Primary Plan Desc:MEDICARE OUTPATIENT Primary Plan Number:[id number] Secondary Plan Desc:[facility] Secondary Plan Number:[id number] Assessment Information BC CM Progress Note CM Note CM Note Notes: Pt admitted OBS for back pain. Pt lives with her Ananth in [place]. 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 Awaiting PT/OT evals to determine if HC services needed. C/M to follow. Date Signed: 08/10/2017 12:24 PM Electronically Signed By:Amber Galicia LCSW Intervention Information Intervention Type:*DUMONT-Signed Date of Service:08/10/2017 12:19 PM Patient Type:Observation Staff Member:ERIBERTO Galicia Claire Hours:0.25 Discipline: Severity: Comment:Pt is blind and could not sign form. S he indicated her understanding.
== END 2017-08-10 16:48 | disposition home or self-care (01) ==
LOC: INTOOBSV 06:16 → F1N 08:15
PROVIDERS: ADMIT Student in an Organized Health Care Education/Training Program; ATTEND Hospitalist
DX: M54.16 Radiculopathy, lumbar region (principal); I49.5 Sick sinus syndrome; M48.061 Spinal stenosis, lumbar region without neurogenic claudication; M51.26 Other intervertebral disc displacement, lumbar region; M51.36 Other intervertebral disc degeneration, lumbar region; N18.3 Chronic kidney disease, stage 3 (moderate); E87.5 Hyperkalemia; E03.9 Hypothyroidism, unspecified; I12.9 Hypertensive chronic kidney disease with stage 1 through stage 4 chronic kidney disease, or unspecified chronic kidney disease; F31.9 Bipolar disorder, unspecified; M35.3 Polymyalgia rheumatica; K21.9 Gastro-esophageal reflux disease without esophagitis; I48.91 Unspecified atrial fibrillation; Z95.0 Presence of cardiac pacemaker; Z98.2 Presence of cerebrospinal fluid drainage device; Z88.0 Allergy status to penicillin
CPT/HCPCS: 64493; 72100; 97161; 97166; 99285; G0378; G8978; G8979; G8987; G8988; G8989; J1170; J3301; Q9967